=== PATIENT | male | born 2005 | race Caucasian/White ===

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

== ENCOUNTER → 2025-06-03 | Outpatient (REF) | payer BC ==
[2025-06-03 14:53] LABS: MONO REFLEX EBV COMP POSITIVE (NEGATIVE)
[2025-06-07 19:53] LABS: LYME TOTAL ANTIBODY CIA <= 0.90 Index (<=0.90)
== END ==
LOC: M LAB REF 12:14
PROVIDERS: ATTEND Physician Assistant Medical
DX: R59.9 Enlarged lymph nodes, unspecified (principal)